=== PATIENT | male | born 1965 | race Caucasian/White ===

== ENCOUNTER 2019-03-15 08:46 | Outpatient (CLI) | payer OTHER | END 2019-03-15 23:59 | disposition home or self-care (01) | LOC: STAR 08:46 | PROVIDERS: ATTEND Urology | DX: Z01.818 Encounter for other preprocedural examination (principal); N50.812 Left testicular pain | CPT/HCPCS: 36415; 80053; 81003; 85025; 87086; 93005; G0103 ==

== ENCOUNTER 2019-03-24 09:39 | Day surgery (SDC) | payer OTHER ==
[~2019-03-24] VITALS: Ht 160 cm; Wt 66.9 kg
[~2019-03-24 09:39] MED LIST: None at this Time
[2019-03-24] MEDS ORDERED: LACTATED RINGERS 1,000 ML IV SCH (09:55)
[2019-03-24 09:56] VITALS: BP 129/82
[2019-03-24] MEDS ORDERED: FENTANYL PF 250 MCG/5ML ONE (11:12)
[2019-03-24] MEDS ORDERED: MIDAZOLAM 1 MG/ML, 2ML ONE (11:12)
[2019-03-24] MEDS ORDERED: THROMBIN 5,000 UNIT VIAL TP ONE (12:48)
[2019-03-24] MEDS ORDERED: BUPIVACAINE/PF 0.5% ONE (12:48)
[2019-03-24] MEDS ORDERED: LIDOCAINE 1%, 20ML ONE (12:49)
[2019-03-24] MEDS ORDERED: DEXAMETHASONE 4 MG/ML, 1ML ONE (13:41)
[2019-03-24] MEDS ORDERED: CEFAZOLIN 1,000 MG ONE (13:41)
[2019-03-24] MEDS ORDERED: ONDANSETRON 2MG/ML, 2ML ONE (13:41)
[2019-03-24] MEDS ORDERED: PROPOFOL 10 MG/ML, 20ML ONE (13:41)
[2019-03-24] MEDS ORDERED: ONDANSETRON 2MG/ML, 2ML IV PRN (14:00)
[2019-03-24] MEDS ORDERED: PROMETHAZINE 25 MG/ML, 1ML IV PRN (14:00)
[2019-03-24] MEDS ORDERED: ONDANSETRON ODT 8 MG PO PRN (14:00)
[2019-03-24] MEDS ORDERED: HYDROmorphone 2 MG/ML, 1ML IVPush PRN (14:00)
[2019-03-24] MEDS ORDERED: PROMETHAZINE 25 MG SUPP PR PRN (14:00)
[2019-03-24] MEDS ORDERED: ACETAMINOPHEN 325 MG TABLET PO PRN (14:00)
[2019-03-24] MEDS ORDERED: LABETALOL 5MG/ML, 20ML IV PRN (14:00)
[2019-03-24] MEDS ORDERED: hydrALAzine 20 MG/ML, 1ML IV PRN (14:00)
[2019-03-24] MEDS ORDERED: FENTANYL PF 100 MCG/2ML IV PRN (14:00)
[2019-03-24] MEDS ORDERED: OXYcodone 5 MG/5 ML ORAL.SOL UDC PO PRN (14:00)
[2019-03-24] MEDS ORDERED: FENTANYL PF 100 MCG/2ML ONE (14:54)
[2019-03-24] MEDS ORDERED: OXYcodone 5 MG/5 ML ORAL.SOL UDC ONE (14:54)
[2019-03-24] MEDS ORDERED: ACETAMINOPHEN 650 MG/20.3 ML UDC ONE (14:54)
== END 2019-03-24 17:50 | disposition home or self-care (01) ==
LOC: OUT 09:39
PROVIDERS: ATTEND Urology
DX: N43.41 Spermatocele of epididymis, single (principal); N40.1 Benign prostatic hyperplasia with lower urinary tract symptoms; E11.9 Type 2 diabetes mellitus without complications; I10 Essential (primary) hypertension; F17.200 Nicotine dependence, unspecified, uncomplicated; Z83.3 Family history of diabetes mellitus
CPT/HCPCS: 54840; 82962; 88304; J0690; J1100; J2250; J2405; J2704; J3010; J7120